=== PATIENT | male | born 1980 | race African-American/Black ===

== ENCOUNTER 2016-12-09 20:40 | Emergency (ER) | payer OTHER ==
[~2016-12-09] VITALS: Ht 180.3 cm; Wt 108.9 kg
[2016-12-09 20:44] VITALS: BP 151/89
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
[2016-12-09] MEDS ORDERED: NEXIUM40 M1 PO (21:37)
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
--- NOTE | 2016-12-09 22:42 | CT SCAN REPORT ---
Indication: Trauma EXAMINATION: Cervical spine CT. Axial imaging with coronal and sagittal reformatted images. FINDINGS: No evidence for an acute fracture or dislocation. IMPRESSION: No acute fracture or dislocation cervical spine.
[2016-12-09] MEDS ORDERED: CYCLOBENZAPRINE10 M1 PO (22:53)
[2016-12-09] MEDS ORDERED: MOBIC15 M1 PO (22:53)
== END 2016-12-09 22:59 ==
LOC: ERH 20:40
DX: S16.1XXA Strain of muscle, fascia and tendon at neck level, initial encounter (principal); S39.012A Strain of muscle, fascia and tendon of lower back, initial encounter; V43.52XA Car driver injured in collision with other type car in traffic accident, initial encounter; Y93.9 Activity, unspecified; Y92.9 Unspecified place or not applicable